=== PATIENT | male | born 2000 | race African-American/Black ===

== ENCOUNTER 2018-11-15 12:44 | Emergency (ER) | payer OTHER ==
[~2018-11-15] VITALS: Ht 172.7 cm; Wt 61.7 kg
[2018-11-15] MEDS ORDERED: ABREVA2 GM TOP (13:23)
== END 2018-11-15 13:26 | disposition home or self-care (01) ==
LOC: ER 12:44
DX: K13.79 Other lesions of oral mucosa (principal)